=== PATIENT | female | born 1975 | race Caucasian/White ===

== ENCOUNTER 2017-02-22 15:01 | Emergency (ER) | payer OTHER ==
[2017-02-22] MEDS ORDERED: KETOROLAC 60 MG/2 ML VIAL. IM ONE (16:15)
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
[2017-02-22 17:05] VITALS: BP 121/83
--- NOTE | 2017-02-23 08:06 | RAD ---
EXAM: Right hand, 3 views; right wrist, 3 views. HISTORY: Fall. COMPARISON: None. FINDINGS: Frontal, lateral and oblique views of the right hand and wrist are obtained. There is no fracture, dislocation or subluxation. IMPRESSION: No acute osseous finding.
== END 2017-02-22 17:05 | disposition home or self-care (01) ==
LOC: ER 15:01
DX: S06.0X0A Concussion without loss of consciousness, initial encounter (principal); S63.501A Unspecified sprain of right wrist, initial encounter; S80.212A Abrasion, left knee, initial encounter; M79.7 Fibromyalgia; Z88.0 Allergy status to penicillin; Z88.1 Allergy status to other antibiotic agents; Z88.8 Allergy status to other drugs, medicaments and biological substances; V29.40XA Motorcycle driver injured in collision with unspecified motor vehicles in traffic accident, initial encounter; Y93.55 Activity, bike riding; Y99.8 Other external cause status; Y92.89 Other specified places as the place of occurrence of the external cause
CPT/HCPCS: 29125; 73110; 73130; 96372; 99284; J1885

== ENCOUNTER 2017-03-07 13:02 | Emergency (ER) | payer OTHER ==
[2017-03-07] MEDS ORDERED: IV NORMAL SALINE 1,000ML 1,000 ML IV SCH (13:41)
--- NOTE | 2017-03-07 13:45 | RAD ---
CT of the head without contrast, 03/07/2017: History: Fall, dizziness The ventricles are within normal limits in size. There is no shift of the midline structures. There is no evidence of acute intracranial hemorrhage or mass effect. IMPRESSION: No acute intracranial abnormality is detected. PQRS Compliance Statement: One or more of the following individualized dose reduction techniques were utilized for this examination: 1. Automated exposure control 2. Adjustment of the mA and/or kV according to patient size 3. Use of iterative reconstruction technique
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
[2017-03-07 14:30] LABS: BASO % 1 % (0-3); EOS # 0.1 x10^3/uL (0.0-0.7); EOS % 2 % (0-3); HEMATOCRIT 41.9 % (36.0-47.0); LYMPH % 27 % (24-48); MEAN CORPUSCULAR HEMOGLOBIN 29 pg (25-35); MEAN CORPUSCULAR HGB CONC 33 g/dL (31-37); MEAN CORPUSCULAR VOLUME 87 fL (79-100); MONO # 0.4 x10^3/uL (0.0-1.1); MONO % 6 % (0-9); NEUT # 4.6 x10^3uL (1.8-7.7); NEUT % 64 % (31-73); PLATELET COUNT 202 x10^3/uL (140-400); RED CELL DISTRIBUTION WIDTH 14.1 % (11.5-14.5); WHITE BLOOD COUNT 7.2 x10^3/uL (4.0-11.0)
[2017-03-07 14:48] LABS: BILIRUBIN,URINE NEG (NEG); CLARITY,URINE CLEAR; COLOR,URINE YELLOW; GLUCOSE,URINE 500 mg/dL (NEG); NITRITE,URINE NEG (NEG); UROBILINOGEN,URINE 0.2 mg/dL (0.2 mg/dL)
[2017-03-07 14:49] LABS: BACTERIA,URINE 0 /HPF (0-FEW); SQUAMOUS EPITHELIAL CELL,UR MOD /LPF
[2017-03-07 14:49] LABS: CALCIUM 8.5 mg/dL (8.5-10.1); GFR 60.2
[2017-03-07 14:50] LABS: POTASSIUM 4.1 mmol/L (3.5-5.1)
[2017-03-07 15:25] VITALS: BP 118/40
--- NOTE | 2017-03-07 18:17 | EKG ---
[facility] ED [facility] [place] [id number] Test Date: 2017-03-07 Test Time: 13:31:10 Pat Name: CHARLIE KING Department: Room: Gender: F Telephone Order Clerk: MIAN : 1975 Requested By: RYDER COLON Order Number: [id number] Reading MD: Flaco Jones Measurements Intervals [place] Rate: 74 P: 46 MN: 146 QRS: 0 QRSD: 82 T: 4 QT: 388 QTc: 431 Interpretive Statements SINUS RHYTHM Electronically Signed On 03-11-2017 8:29:25 CDT by Flaco Jones
== END 2017-03-07 15:25 | disposition home or self-care (01) ==
LOC: ER 13:02
DX: F07.81 Postconcussional syndrome (principal); E86.1 Hypovolemia; E11.9 Type 2 diabetes mellitus without complications; M79.7 Fibromyalgia; J45.909 Unspecified asthma, uncomplicated; F11.20 Opioid dependence, uncomplicated; Z88.0 Allergy status to penicillin; Z88.1 Allergy status to other antibiotic agents; Z88.8 Allergy status to other drugs, medicaments and biological substances
CPT/HCPCS: 36415; 70450; 80048; 81001; 82550; 84484; 85027; 93005; 96360; 96361; 99285-25; J7030